=== PATIENT | female | born 1990 | race Hispanic/Latino ===

== ENCOUNTER 2017-01-15 00:11 | Emergency (ER) | payer SELFPAY ==
--- NOTE | 2017-01-15 00:19 | EDM.PDOC ---
ED HPI GENERAL MEDICAL PROBLEM - General Stated Complaint: FEMALE BLEEDING Time Seen by Provider: 01/15/17 00:19 Source of Information: Reports: Patient - History of Present Illness INITIAL COMMENTS - FREE TEXT/NARRATIVE: HISTORY AND PHYSICAL: History of present illness: []26-year-old female presents with irregular menstruation and heavy flow, she states that since the of her last child in August she continues to have irregular menses in particularly heavy flow today using 10 pads. She had told the nurse that she felt lightheaded she denies this to me no fever nausea vomiting diarrhea constipation chest pain shortness breath headache dizziness palpitation about a urine symptoms Review of systems: As per history of present illness and below otherwise all systems reviewed and negative. Past medical history: As per history of present illness and as reviewed below otherwise noncontributory. Surgical history: As per history of present illness and as reviewed below otherwise noncontributory. Social history: No reported history of drug or alcohol abuse. Family history: As per history of present illness and as reviewed below otherwise noncontributory. Physical exam: HEENT: Atraumatic, normocephalic, pupils reactive, negative for conjunctival pallor or scleral icterus, mucous membranes moist, throat clear, neck supple, nontender, trachea midline. Lungs: Clear to auscultation, breath sounds equal bilaterally, chest nontender. Heart: S1S2, regular, negative for clicks, rubs, or JVD. Abdomen: Soft, nondistended, nontender. Negative for masses or hepatosplenomegaly. Negative for costovertebral tenderness. Pelvis: Stable nontender. Genitourinary: Deferred. Rectal: Deferred. Extremities: Atraumatic, negative for cords or calf pain. Neurovascular unremarkable. Neuro: Awake, alert, oriented. Cranial nerves II through XII unremarkable. Cerebellum unremarkable. Motor and sensory unremarkable throughout. Exam nonfocal. Diagnostics: []Lab as below Therapeutics: []Follow-up with gynecology Macrobid 100 mg by mouth twice a day #14 no refill Impression: []Irregular menstruation Menorrhagia Leukocyte esterase positive with bacteria increased white blood cells prophylactic treatment for UTI Definitive disposition and diagnosis as appropriate pending reevaluation and review of above. Bilateral Abdominal Pain Score (Numeric/FACES): 8 - Related Data Allergies Allergy/AdvReac Type Severity Reaction Status Date / Time No Known Allergies Allergy Verified 01/15/17 00:25 Home Meds: Home Meds . [No Known Home Meds] 01/10/14 [History] Past Medical History - Past Health History Medical/Surgical History: Denies Medical/Surgical History Social & Family History - Tobacco Use Smoking Status *Q: Never Smoker Years of Tobacco use: 3 Used Tobacco, but Quit: Yes Month Tobacco Last Used: November - Alcohol Use Days Per Week of Alcohol Use: 0 - Recreational Drug Use Recreational Drug Use: No Drug Use in Last 12 Months: No Recreational Drug Type: Reports: Marijuana/Hashish Recreational Drug Use Frequency: Not Used In Over 2 Months ED ROS GENERAL - Review of Systems Review Of Systems: ROS reveals no pertinent complaints other than HPI. ED EXAM, GENERAL - Physical Exam Exam: See Below Course - Vital Signs Last Recorded V/S: Last Vital Signs Temp 36.6 C 01/15/17 00:26 Pulse 69 01/15/17 00:26 Resp 18 01/15/17 00:26 BP 118/75 01/15/17 00:26 Pulse Ox 98 01/15/17 00:26 - Orders/Labs/Meds Orders: Active Orders 24 hr Category Date Time Status Femur Min 2V Lt [CR] Stat Exams 01/15/17 00:16 Stop Req Pelvis 1V or 2V [CR] Stat Exams 01/15/17 00:16 Stop Req CKMB [CHEM] Stat Lab 01/15/17 00:30 Received COMPREHENSIVE METABOLIC PN,CMP [CHEM] Stat Lab 01/15/17 00:30 Received CREATINE KINASE,CK [CHEM] Stat Lab 01/15/17 00:30 Received CULTURE URINE [RM] Stat Lab 01/15/17 00:56 Uncollected Labs: Laboratory Tests 01/15/17 01/15/17 01/15/17 Range/Units 00:30 00:30 00:35 WBC 8.56 (4.0-11.0) K/uL RBC 5.01 (4.30-5.90) M/uL Hgb 12.7 (12.0-16.0) g/dL Hct 39.7 (36.0-46.0) % MCV 79.2 L (80.0-98.0) fL MCH 25.3 L (27.0-32.0) pg MCHC 32.0 (31.0-37.0) g/dL RDW Std Deviation 44.4 (28.0-62.0) fl RDW Coeff of Jennifer 16 H (11.0-15.0) % Plt Count 320 (150-400) K/uL MPV 9.40 (7.40-12.00) fL Neut % (Auto) 46.3 L (48.0-80.0) % Lymph % (Auto) 42.9 H (16.0-40.0) % Jack % (Auto) 7.2 (0.0-15.0) % Eos % (Auto) 3.5 (0.0-7.0) % Baso % (Auto) 0.1 (0.0-1.5) % Neut # (Auto) 4.0 (1.4-5.7) K/uL Lymph # (Auto) 3.7 H (0.6-2.4) K/uL Jack # (Auto) 0.6 (0.0-0.8) K/uL Eos # (Auto) 0.3 (0.0-0.7) K/uL Baso # (Auto) 0.0 (0.0-0.1) K/uL Troponin I < 0.10 (0.0-0.29) NG/ML Urine Color YELLOW Urine Appearance SLT CLOUDY Urine pH 6.5 (5.0-8.0) Ur Specific Atkinson 1.025 (1.001-1.035) Urine Protein NEGATIVE (NEGATIVE) mg/dL Urine Glucose (UA) NEGATIVE (NEGATIVE) mg/dL Urine Ketones TRACE H (NEGATIVE) mg/dL Urine Occult Blood LARGE H (NEGATIVE) Urine Nitrite NEGATIVE (NEGATIVE) Urine Bilirubin NEGATIVE (NEGATIVE) Urine Urobilinogen 0.2 (<2.0) EU/dL Ur Leukocyte Esterase TRACE (NEGATIVE) Urine RBC 6-10 (0-2/HPF) Urine WBC 5-10 (0-5/HPF) Ur Epithelial Cells MODERATE (NONE-FEW) Urine Bacteria 1+ H (NEGATIVE) Urine HCG, Qual (NEGATIVE) 01/15/17 Range/Units 00:35 WBC (4.0-11.0) K/uL RBC (4.30-5.90) M/uL Hgb (12.0-16.0) g/dL Hct (36.0-46.0) % MCV (80.0-98.0) fL MCH (27.0-32.0) pg MCHC (31.0-37.0) g/dL RDW Std Deviation (28.0-62.0) fl RDW Coeff of Jennifer (11.0-15.0) % Plt Count (150-400) K/uL MPV (7.40-12.00) fL Neut % (Auto) (48.0-80.0) % Lymph % (Auto) (16.0-40.0) % Jack % (Auto) (0.0-15.0) % Eos % (Auto) (0.0-7.0) % Baso % (Auto) (0.0-1.5) % Neut # (Auto) (1.4-5.7) K/uL Lymph # (Auto) (0.6-2.4) K/uL Jack # (Auto) (0.0-0.8) K/uL Eos # (Auto) (0.0-0.7) K/uL Baso # (Auto) (0.0-0.1) K/uL Troponin I (0.0-0.29) NG/ML Urine Color Urine Appearance Urine pH (5.0-8.0) Ur Specific Atkinson (1.001-1.035) Urine Protein (NEGATIVE) mg/dL Urine Glucose (UA) (NEGATIVE) mg/dL Urine Ketones (NEGATIVE) mg/dL Urine Occult Blood (NEGATIVE) Urine Nitrite (NEGATIVE) Urine Bilirubin (NEGATIVE) Urine Urobilinogen (<2.0) EU/dL Ur Leukocyte Esterase (NEGATIVE) Urine RBC (0-2/HPF) Urine WBC (0-5/HPF) Ur Epithelial Cells (NONE-FEW) Urine Bacteria (NEGATIVE) Urine HCG, Qual NEGATIVE (NEGATIVE) Departure - Departure Time of Disposition: 01:00 Disposition: Home, Self-Care 01 Condition: Good Clinical Impression: Irregular menstruation - Discharge Information Referrals: PCP,None [Primary Care Provider] - Additional Instructions: Follow-up with gynecology and establish care Call the number below to obtain an appointment as appropriate Medication as prescribed [facility] - [address] [place] [id number] [facility] - [facility] [address] [place] [id number] The following information is given to patients seen in the emergency department who are being discharged to home. This information is to outline your options for follow-up care. We provide all patients seen in our emergency department with a follow-up referral. The need for follow-up, as well as the timing and circumstances, are variable depending upon the specifics of your emergency department visit. If you don't have a primary care physician on staff, we will provide you with a referral. We always advise you to contact your personal physician following an emergency department visit to inform them of the circumstance of the visit and for follow-up with them and/or the need for any referrals to a consulting specialist. The emergency department will also refer you to a specialist when appropriate. This referral assures that you have the opportunity for follow-up care with a specialist. All of these measure are taken in an effort to provide you with optimal care, which includes your follow-up. Under all circumstances we always encourage you to contact your private physician who remains a resource for coordinating your care. When calling for follow-up care, please make the office aware that this follow-up is from your recent emergency room visit. If for any reason you are refused follow-up, please contact the [facility] emergency department at and asked to speak to the emergency department charge nurse. - My Orders Last 24 Hours: My Active Orders 01/15/17 00:16 Femur Min 2V Lt [CR] Stat Pelvis 1V or 2V [CR] Stat 01/15/17 00:30 CKMB [CHEM] Stat COMPREHENSIVE METABOLIC PN,CMP [CHEM] Stat CREATINE KINASE,CK [CHEM] Stat 01/15/17 00:56 CULTURE URINE [RM] Stat - Assessment/Plan Last 24 Hours: My Active Orders 01/15/17 00:16 Femur Min 2V Lt [CR] Stat Pelvis 1V or 2V [CR] Stat 01/15/17 00:30 CKMB [CHEM] Stat COMPREHENSIVE METABOLIC PN,CMP [CHEM] Stat CREATINE KINASE,CK [CHEM] Stat 01/15/17 00:56 CULTURE URINE [RM] Stat
[2017-01-15 00:41] VITALS: BP 118/75
[2017-01-15 01:05] LABS: CHLORIDE,CL 107 mmol/L (98-110); SODIUM,NA 140 mmol/L (136-146)
== END 2017-01-15 01:12 | disposition home or self-care (01) ==
LOC: MW.ED 00:11
DX: N92.0 Excessive and frequent menstruation with regular cycle (principal)
CPT/HCPCS: 36415; 80053; 81001; 81025; 82550; 82553; 84484; 85025; 87086; 99282; 99284

== ENCOUNTER 2017-07-22 14:07 | Emergency (ER) | payer SELFPAY ==
[2017-07-22] MEDS ORDERED: Benzocaine 20% Topical Spray UD MUCMEM ONE (15:50)
[2017-07-22] MEDS ORDERED: Lidocaine 2% Viscous Solution 15 ML Cup PO ONE (15:50)
--- NOTE | 2017-07-22 15:57 | EDM.PDOC ---
ED HPI GENERAL MEDICAL PROBLEM - General Chief Complaint: General Stated Complaint: ORAL ISSUES(LIPS ARE SWOLLEN) Time Seen by Provider: 07/22/17 15:42 Source of Information: Reports: Patient History Limitations: Reports: No Limitations - History of Present Illness INITIAL COMMENTS - FREE TEXT/NARRATIVE: HISTORY AND PHYSICAL: History of present illness: Patient is a 26-year-old female who presents to the emergency room with complaints of left upper posterior molar dental pain and swelling. She states that this has been going on for several days and has not improved. Did see her dentist in October for cracked tooth which she states is adjacent to the one hurting now. She does plan to see a dentist later this week for further evaluation and management of this. Denies any fever, chills, chest pain or shortness of breath. She denies any abdominal pain, nausea, vomiting, diarrhea or constipation. Review of systems: As per history of present illness and below otherwise all systems reviewed and negative. Past medical history: As per history of present illness and as reviewed below otherwise noncontributory. Surgical history: As per history of present illness and as reviewed below otherwise noncontributory. Social history: No reported history of drug or alcohol abuse. Family history: As per history of present illness and as reviewed below otherwise noncontributory. Physical exam: General: Well-developed and well-nourished 26-year-old female. Alert and oriented. Nontoxic appearing and in no acute distress. HEENT: Atraumatic, normocephalic, pupils equal and reactive bilaterally, negative for conjunctival pallor or scleral icterus, mucous membranes moist, and tilt decayed to the left posterior molar with mild erythema along the gumline, tenderness with palpation. Some soft tissue swelling noted to the left upper cheek going towards the nose. Otherwise throat clear, neck supple, nontender, trachea midline. No drooling or trismus noted. No meningeal signs Lungs: Clear to auscultation, breath sounds equal bilaterally, chest nontender. Heart: S1S2, regular rate and rhythm without overt murmur Abdomen: Soft, nondistended, nontender. Negative for masses or hepatosplenomegaly. Negative for costovertebral tenderness. Pelvis: Stable nontender. Genitourinary: Deferred. Rectal: Deferred. Skin: Intact, warm, dry. No lesions or rashes noted. Extremities: Atraumatic, negative for cords or calf pain. Neurovascular unremarkable. Neuro: Awake, alert, oriented. Cranial nerves II through XII unremarkable. Cerebellum unremarkable. Motor and sensory unremarkable throughout. Exam nonfocal. Notes: Patient states that she has had dentall problems in the past and has had antibiotics with good results. Encouraged her to follow-up with a local dentist next week. Signs and symptoms that would prompt her to come back to the emergency room were reviewed with her. She voices understanding and agreeable to plan of care. She denies any further questions at this time. Diagnostics: [] Therapeutics: Dental balls Impression: Dental abscess Plan: 1. Please take the antibiotic as prescribed 2. Tylenol and/or ibuprofen as needed for pain management. Please use the dental balls as directed. Do not swallow. Tramadol for moderate to sever pain; do not take while driving or needing to be functioning outside the house as it can cause drowsiness. 3. Please take Benadryl (non-drowsy) for the swelling component of your infection. Try this around the clock for the next 2 days. 4. Lomotil up with the dentist next week. Return to the ER as needed and as discussed. Definitive disposition and diagnosis as appropriate pending reevaluation and review of above. Duration: Day(s): Location: Reports: Face Left Upper Oral/Mouth Pain Score (Numeric/FACES): 10 - Related Data Allergies Allergy/AdvReac Type Severity Reaction Status Date / Time hydrocodone Allergy Nausea Verified 07/22/17 15:12 Home Meds: Home Meds . 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: Endocrine/Metabolic History: Reports: Diabetes, Gestational, Other (See Below) Social & Family History - Family History Family Medical History: Noncontributory - Tobacco Use Smoking Status *Q: Current Every Day Smoker Years of Tobacco use: 7 Packs/Tins Daily: 0.5 Used Tobacco, but Quit: Yes Month/Year Tobacco Last Used: November - Caffeine Use Caffeine Use: Reports: None - Alcohol Use Days Per Week of Alcohol Use: 0 - Recreational Drug Use Recreational Drug Use: No Drug Use in Last 12 Months: No Recreational Drug Type: Reports: Marijuana/Hashish Recreational Drug Use Frequency: Not Used In Over 2 Months ED ROS GENERAL - Review of Systems Review Of Systems: ROS reveals no pertinent complaints other than HPI. ED EXAM, GENERAL - Physical Exam Exam: See Below (See dictation) Course - Vital Signs Last Recorded V/S: Last Vital Signs Temp 98.3 F 07/22/17 15:09 Pulse 67 07/22/17 15:09 Resp 18 07/22/17 15:09 BP 118/81 07/22/17 15:09 Pulse Ox 99 07/22/17 15:09 - Orders/Labs/Meds Meds: Medications Discontinued Medications Generic Name Dose Route Start Last Admin Trade Name Anushka PRN Reason Stop Dose Admin Benzocaine 2 each 07/22/17 15:50 Hurricaine One 20% MUCMEM 07/22/17 15:51 ONETIME ONE Lidocaine HCl 15 ml 07/22/17 15:50 Xylocaine 2% Viscous PO 07/22/17 15:51 ONETIME ONE Departure - Departure Time of Disposition: 15:57 Disposition: Home, Self-Care 01 Clinical Impression: Dental abscess - Discharge Information Instructions: Dental Abscess, [id number] Referrals: PCP,None [Primary Care Provider] - Forms: ED Department Discharge Additional Instructions: The following information is given to patients seen in the emergency department who are being discharged to home. This information is to outline your options for follow-up care. We provide all patients seen in our emergency department with a follow-up referral. The need for follow-up, as well as the timing and circumstances, are variable depending upon the specifics of your emergency department visit. If you don't have a primary care physician on staff, we will provide you with a referral. We always advise you to contact your personal physician following an emergency department visit to inform them of the circumstance of the visit and for follow-up with them and/or the need for any referrals to a consulting specialist. The emergency department will also refer you to a specialist when appropriate. This referral assures that you have the opportunity for follow-up care with a specialist. All of these measure are taken in an effort to provide you with optimal care, which includes your follow-up. Under all circumstances we always encourage you to contact your private physician who remains a resource for coordinating your care. When calling for follow-up care, please make the office aware that this follow-up is from your recent emergency room visit. If for any reason you are refused follow-up, please contact the [facility] Emergency Department at and asked to speak to the emergency department charge nurse. [facility] [address] [place] [id number] 1. Please take the antibiotic as prescribed 2. Tylenol and/or ibuprofen as needed for pain management. Please use the dental balls as directed. Do not swallow. Tramadol for moderate to sever pain; do not take while driving or needing to be functioning outside the house as it can cause drowsiness. 3. Please take Benadryl (non-drowsy) for the swelling component of your infection. Try this around the clock for the next 2 days. 4. Lomotil up with the dentist next week. Return to the ER as needed and as discussed.
[2017-07-22 16:12] VITALS: BP 123/87
== END 2017-07-22 16:07 | disposition home or self-care (01) ==
LOC: MW.ED 14:07
DX: K04.7 Periapical abscess without sinus (principal); F17.210 Nicotine dependence, cigarettes, uncomplicated; Z88.5 Allergy status to narcotic agent
CPT/HCPCS: 99282; A9270

== ENCOUNTER 2018-08-16 01:51 | Emergency (ER) | payer SELFPAY ==
[2018-08-16] MEDS ORDERED: Sodium Chloride 0.9% 10 ML Syringe FLUSH PRN (02:10)
[2018-08-16] MEDS ORDERED: Sodium Chloride 0.9% 2.5 ML Syringe FLUSH PRN (02:10)
[2018-08-16] MEDS ORDERED: Sodium Chloride 0.9% 1,000 ML IV ONE (02:10)
[2018-08-16 02:53] VITALS: BP 123/83
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
[2018-08-16 06:52] LABS: SODIUM,NA 142 mmol/L (136-145)
[2018-08-16 06:53] LABS: CHLORIDE,CL 104 mmol/L (98-107)
== END 2018-08-16 04:00 ==
LOC: MW.ED 01:51
DX: T14.91XA Suicide attempt, initial encounter (principal); F17.210 Nicotine dependence, cigarettes, uncomplicated; Z88.6 Allergy status to analgesic agent
CPT/HCPCS: 36415; 80053; 80305; 81003; 81025; 83735; 84443; 85025; 93005; 96360; 99285; G0480; J7040

== ENCOUNTER 2018-08-20 23:09 | Emergency (ER) | payer SELFPAY ==
[2018-08-20] MEDS ORDERED: Ondansetron 4 MG/2 ML SDV IVPUSH ONE (23:24)
[2018-08-20] MEDS ORDERED: Sodium Chloride 0.9% 1,000 ML IV ONE (23:24)
[2018-08-20] MEDS ORDERED: Morphine 2 MG/ML Syringe IVPUSH ONE (23:24)
[2018-08-20] MEDS ORDERED: Sodium Chloride 0.9% 2.5 ML Syringe FLUSH PRN (23:24)
[2018-08-20] MEDS ORDERED: Ketorolac 30 MG/ML SDV IVPUSH ONE (23:24)
[2018-08-20] MEDS ORDERED: Sodium Chloride 0.9% 10 ML Syringe FLUSH PRN (23:24)
[2018-08-20] MEDS ORDERED: Pantoprazole 40 MG Vial IVPUSH ONE (23:27)
--- NOTE | 2018-08-20 23:27 | EDM.PDOC ---
ED HPI GENERAL MEDICAL PROBLEM - General Chief Complaint: Abdominal Pain Stated Complaint: LOWER ADOMINAL PAIN Time Seen by Provider: 08/20/18 23:14 - History of Present Illness INITIAL COMMENTS - FREE TEXT/NARRATIVE: HISTORY AND PHYSICAL: History of present illness: The patient is a 27-year-old female with no abdominal surgical history or GI history who presents with onset of mid abdominal cramping nausea vomiting and diarrhea that started today. I met this patient last week when she presented for psychiatric issues and was transferred to [facility] in [place] for that care. She has recently started on some new medications. She says she has not had alcohol to drink since that last visit here to the ED. She says that today she has had multiple episodes of loose stool which is not watery black or bloody and she is unable to keep anything down by mouth. She's had nausea and vomiting. She's had no fevers chills chest pain or shortness of breath and no urinary complaints Review of systems: As per history of present illness and below otherwise all systems reviewed and negative. Past medical history: As per history of present illness and as reviewed below otherwise noncontributory. Surgical history: As per history of present illness and as reviewed below otherwise noncontributory. Social history: No reported history of drug or alcohol abuse. Family history: As per history of present illness and as reviewed below otherwise noncontributory. Physical exam: General: Well-developed well-nourished female who is overweight and looks uncomfortable in the room but very exaggerated in general. HEENT: Atraumatic, normocephalic, , negative for conjunctival pallor or scleral icterus, mucous membranes moist, throat clear, neck supple, nontender, trachea midline. Lungs: Clear to auscultation, breath sounds equal bilaterally, chest nontender. Heart: S1S2, regular rate and rhythm no overt murmurs Abdomen: Soft, nondistended, mild upper abdominal tenderness to palpation but no rebound or guarding and bowel sounds are normoactive Negative for masses or hepatosplenomegaly. Negative for costovertebral tenderness. Pelvis: Stable nontender. Genitourinary: Deferred. Rectal: Deferred. Extremities: Atraumatic, negative for cords or calf pain. Neurovascular unremarkable. Neuro: Awake, alert, oriented. Cranial nerves II through XII unremarkable. Cerebellum unremarkable. Motor and sensory unremarkable throughout. Exam nonfocal. Diagnostics: CBC CMP amylase lipase hCG UA stool for study H pylori--- patient did not produce a urine or stool for study chest were canceled Therapeutics: IV fluids Protonix Zofran Toradol morphine She is much more comfortable and is resting easily. She is aware of testing results including the H. pylori positive for which she needs to be treated. She was cautioned on dietary changes and I will also give her some Bentyl for cramping from the diarrhea. Impression: Abdominal pain vomiting and diarrhea, H. pylori positive Definitive disposition and diagnosis as appropriate pending reevaluation and review of above. 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: Musculoskeletal History: Reports: None Neurological History: Reports: None Psychiatric History: Reports: Anxiety, Developmental Delay Endocrine/Metabolic History: Reports: Diabetes, Gestational Hematologic History: Reports: None Dermatologic History: Reports: None - Infectious Disease History Infectious Disease History: Reports: Chicken Pox - Past Surgical History Female Surgical History: Reports: None Social & Family History - Family History Family Medical History: Noncontributory - Caffeine Use Caffeine Use: Reports: None - Recreational Drug Use Recreational Drug Use: Yes Drug Use in Last 12 Months: Yes ED ROS GENERAL - Review of Systems Review Of Systems: ROS reveals no pertinent complaints other than HPI. ED EXAM, GENERAL - Physical Exam Exam: See Below (see Dictation) Course - Vital Signs Last Recorded V/S: Last Vital Signs Temp 36.6 C 08/20/18 23:19 Pulse 72 08/20/18 23:19 Resp 20 08/20/18 23:19 BP 104/67 08/20/18 23:19 Pulse Ox 99 08/20/18 23:19 - Orders/Labs/Meds Orders: Active Orders 24 hr Category Date Time Status UA RFX DANIELA AND CULT IF INDIC [URIN] Stat Lab 08/20/18 23:24 Stop Req Sodium Chloride 0.9% [Saline Flush] Med 08/20/18 23:24 Active 10 ml FLUSH ASDIRECTED PRN Sodium Chloride 0.9% [Saline Flush] Med 08/20/18 23:24 Active 2.5 ml FLUSH ASDIRECTED PRN Saline Lock Insert [OM.PC] Stat Oth 08/20/18 23:24 Ordered Medication Orders Sodium Chloride (Saline Flush) 10 ml FLUSH ASDIRECTED PRN PRN Reason: Keep Vein Open Sodium Chloride (Saline Flush) 2.5 ml FLUSH ASDIRECTED PRN PRN Reason: Keep Vein Open Labs: Laboratory Tests 08/20/18 08/20/18 08/20/18 Range/Units 23:40 23:40 23:40 WBC 9.38 (4.0-11.0) K/uL RBC 4.83 (4.30-5.90) M/uL Hgb 14.8 (12.0-16.0) g/dL Hct 44.3 (36.0-46.0) % MCV 91.7 (80.0-98.0) fL MCH 30.6 (27.0-32.0) pg MCHC 33.4 (31.0-37.0) g/dL RDW Std Deviation 41.2 (28.0-62.0) fl RDW Coeff of Jennifer 12 (11.0-15.0) % Plt Count 262 (150-400) K/uL MPV 9.40 (7.40-12.00) fL Neut % (Auto) 87.2 H (48.0-80.0) % Lymph % (Auto) 8.5 L (16.0-40.0) % Howell % (Auto) 3.7 (0.0-15.0) % Eos % (Auto) 0.5 (0.0-7.0) % Baso % (Auto) 0.1 (0.0-1.5) % Neut # (Auto) 8.2 H (1.4-5.7) K/uL Lymph # (Auto) 0.8 (0.6-2.4) K/uL Howell # (Auto) 0.4 (0.0-0.8) K/uL Eos # (Auto) 0.1 (0.0-0.7) K/uL Baso # (Auto) 0.0 (0.0-0.1) K/uL Nucleated RBC % 0.0 /100WBC Nucleated RBCs # 0 K/uL Sodium 141 (136-145) mmol/L Potassium 4.1 (3.5-5.1) mmol/L Chloride 103 (98-107) mmol/L Carbon Dioxide 25.4 (21.0-32.0) mmol/L BUN 16 (7.0-18.0) mg/dL Creatinine 0.9 (0.6-1.0) mg/dL Est Cr Clr Drug Dosing 75.58 mL/min Estimated GFR (MDRD) > 60.0 ml/min Glucose 111 H (74-106) mg/dL Calcium 8.9 (8.5-10.1) mg/dL Total Bilirubin 0.7 (0.2-1.0) mg/dL AST 20 (15-37) IU/L ALT 36 (14-63) IU/L Alkaline Phosphatase 42 L (46-116) U/L Total Protein 7.9 (6.4-8.2) g/dL Albumin 4.0 (3.4-5.0) g/dL Globulin 3.9 (2.6-4.0) g/dL Albumin/Globulin Ratio 1.0 (0.9-1.6) Amylase 55 (25-115) U/L Lipase 102 (73-393) U/L HCG, Qual NEGATIVE (NEG) H. pylori IgG Antibody POSITIVE H (NEG) Meds: Medications Generic Name Dose Route Start Last Admin Trade Name Freq PRN Reason Stop Dose Admin Sodium Chloride 10 ml 08/20/18 23:24 Saline Flush FLUSH ASDIRECTED PRN Keep Vein Open Sodium Chloride 2.5 ml 08/20/18 23:24 Saline Flush FLUSH ASDIRECTED PRN Keep Vein Open Discontinued Medications Generic Name Dose Route Start Last Admin Trade Name Freq PRN Reason Stop Dose Admin Sodium Chloride 1,000 mls @ 999 mls/hr 08/20/18 23:24 08/20/18 23:40 Normal Saline IV 08/21/18 00:24 999 mls/hr STAT ONE Administration Sodium Chloride Confirm 08/20/18 23:32 08/20/18 23:47 Normal Saline Administered 08/20/18 23:33 20 mls/hr Dose Administration 20 mls @ as directed .ROUTE .STK-MED ONE Ketorolac Tromethamine 30 mg 08/20/18 23:24 08/20/18 23:42 Toradol IVPUSH 08/20/18 23:25 30 mg ONETIME ONE Administration Morphine Sulfate 4 mg 08/20/18 23:24 08/20/18 23:43 Morphine IVPUSH 08/20/18 23:25 4 mg ONETIME ONE Administration Ondansetron HCl 4 mg 08/20/18 23:24 08/20/18 23:40 Zofran IVPUSH 08/20/18 23:25 4 mg ONETIME ONE Administration Pantoprazole Sodium 80 mg 08/20/18 23:27 08/20/18 23:47 Protonix Iv IVPUSH 08/20/18 23:28 80 mg .BOLUS ONE Administration Departure - Departure Time of Disposition: 00:30 Disposition: Home, Self-Care 01 Condition: Good Clinical Impression: Vomiting and diarrhea, H. pylori infection Abdominal pain Qualifiers: Abdominal location: generalized Qualified Code(s): R10.84 - Generalized abdominal pain - Discharge Information Referrals: PCP,None [Primary Care Provider] - Forms: ED Department Discharge Additional Instructions: The following information is given to patients seen in the emergency department who are being discharged to home. This information is to outline your options for follow-up care. We provide all patients seen in our emergency department with a follow-up referral. The need for follow-up, as well as the timing and circumstances, are variable depending upon the specifics of your emergency department visit. If you don't have a primary care physician on staff, we will provide you with a referral. We always advise you to contact your personal physician following an emergency department visit to inform them of the circumstance of the visit and for follow-up with them and/or the need for any referrals to a consulting specialist. The emergency department will also refer you to a specialist when appropriate. This referral assures that you have the opportunity for followup care with a specialist. All of these measure are taken in an effort to provide you with optimal care, which includes your followup. Under all circumstances we always encourage you to contact your private physician who remains a resource for coordinating your care. When calling for followup care, please make the office aware that this follow-up is from your recent emergency room visit. If for any reason you are refused follow-up, please contact the [facility] emergency department at and ask to speak to the emergency department charge nurse. [facility] Primary care- Internal Medicine and Family [address] [address] Continue your home medication and try to avoid caffeine and alcohol and other irritating foods and liquids to your stomach. Please use the Bentyl you have been given for cramping and pain from the diarrhea. Please take the other 3 medications for treatment of your H. pylori infection as directed. Call and schedule a follow-up appointment in the clinic using resources given to above and return to ER as needed and as discussed - My Orders Last 24 Hours: My Active Orders 08/20/18 23:24 UA RFX DANIELA AND CULT IF INDIC [URIN] Stat Sodium Chloride 0.9% [Saline Flush] 10 ml FLUSH ASDIRECTED PRN Sodium Chloride 0.9% [Saline Flush] 2.5 ml FLUSH ASDIRECTED PRN Saline Lock Insert [OM.PC] Stat - Assessment/Plan Last 24 Hours: My Active Orders 08/20/18 23:24 UA RFX DANIELA AND CULT IF INDIC [URIN] Stat Sodium Chloride 0.9% [Saline Flush] 10 ml FLUSH ASDIRECTED PRN Sodium Chloride 0.9% [Saline Flush] 2.5 ml FLUSH ASDIRECTED PRN Saline Lock Insert [OM.PC] Stat
[2018-08-20] MEDS ORDERED: Sodium Chloride 0.9% 20 ML ONE (23:32)
[2018-08-21 00:20] LABS: CHLORIDE,CL 103 mmol/L (98-107); SODIUM,NA 141 mmol/L (136-145)
[2018-08-21 00:56] VITALS: BP 114/64
== END 2018-08-21 00:55 | disposition home or self-care (01) ==
LOC: MW.ED 23:09
DX: A04.8 Other specified bacterial intestinal infections (principal); Z88.8 Allergy status to other drugs, medicaments and biological substances
CPT/HCPCS: 80053; 82150; 83690; 84703; 85025; 86677; 96361; 96374; 96375; 99284; C9113; J1885; J2270; J2405; J7040